=== PATIENT | female | born 1975 | race Caucasian/White ===

== ENCOUNTER → 2016-08-21 | Outpatient (CLI) | payer OTHER, MEDICARE ==
[~2016-08-21] MED LIST: /DULO30CA OR; /DULO30CA PO; /FENT25PA TD; COLA100C2 OR; DICL75TA PO; DOCU10CA PO; DULO30CA PO; EMBEDA; GLYB25TA PO; LINZ145C PO; LYRI200C OR; MAGN400C2 PO; MELO15TA4 PO; MIRALEX OR; NEUR300C PO; NORT25CA2; ORAL CONTRACEPTIVE OR; PERC10TA17 PO; PERC5TAB8; PERC5TAB8 OR; POLYBTL PO; SENN8.6C PO; SENN8.6T14 OR; SKEL-29 PO; SOMA350T; SOMA350T OR; SOMA350T PO; TIZA4CAP3 PO; TOPA25TA PO; TOPI100T; TOPI100T OR; TRAM50TA2 OR; TRAM50TA2 PO; TRAZ100T OR; ULTR50TA PO; VALI5TAB PO; VITA100037 PO; VOLT1GEL2 TOP; VOLT1GEL24 TD; [UNRECOGNIZED DRUG - OTHER] PO; benifiber PO; lodine PO
--- NOTE | 2016-08-25 23:35 | ECWPNPC ---
PATIENT NAME: SOPHIE BRYAN : 1975 GENDER: FEMALE VISIT DATE: 08/21/2016 DISCHARGE DATE: 08/21/16 1611 VISIT LOCKED DATE TIME: PHYSICIAN: MESSI GRANGER RESOURCE: MESSI GRANGER REASON FOR APPOINTMENT 1. W/C BACK HISTORY OF PRESENT ILLNESS HISTORY OF PRESENT ILLNESS: PAIN THE PATIENT DESCRIBES THE PAIN... FALL RISK SCREENING: SCREENING :NO FALLS IN THE PAST YEAR TODAY'S VISIT: NOTES: WC LOW BACK - HAS NOTED INCREASED SORENESS WITH NOT BEING ABLE TO GET MEDS ON SCHEDULE. NOW SIGNIFICANT BACK PAIN AND L>R HIP AND LEG. SLEEP IS SIG DISRUPTED. BOWELS MOVING ONCE A WEEK. HAVING DIFFICULTY GETTING MEDS.RATES PAIN TODAY 7/10. DESCRIBES PAIN CONSTANT, ACHING, BURNING STABBING THROBBING AND SHOOTING. PAIN IS CENTERED ACROSS THE LOW BACK WITH RADIATION TO THE LEGS. . CURRENT MEDICATIONS TAKING COLACE 100 MG CAPSULE 2 CAPSULES NEEDED ORALLY 3X/DAY TAKING MAGNESIUM 400 MG TABLET 1 TABLET WITH A MEAL ORALLY ONCE A DAY TAKING VITAMIN D 46954 MG CAPSULE UNITS ORALLY DAILY TAKING CYMBALTA 60 MG CAPSULE DELAYED RELEASE PARTICLES 1 CAPSULE ORALLY EVERY NIGHT TAKING VOLTAREN 1 % GEL 100 GRAMS EXTERNALLY EVERY 6 HOUR PRN PAIN. APPLY TO LOW ELEANOR TAKING VALIUM 5 MG TABLET 1 TABLET NEEDED ORALLY TWICE A DAY PRN SPASM MDD=2 TAKING ASPIRIN ADULT LOW DOSE 81 MG TABLET DELAYED RELEASE 1 TABLET ORALLY ONCE A DAY TAKING ACCU-CHEK COMPACT PLUS _ STRIP 1 CAP(S) IN VITRO BID TAKING MIRALAX 1 POWDER DIRECTED ORALLY 17 GM IN 8 OZ FLUID 1-2 TIMES PER DAY TAKING ACCU-CHEK SOFT TOUCH LANCETS _ MISCELLANEOUS DIRECTED SUBCUTANEOUSLY DIRECTED TAKING ALCOHOL PADS 70 % PAD DIRECTED TOPICALLY DIRECTED TAKING TIZANIDINE HCL 4 MG TABLET 1 -2 TABS ORALLY THREE TIMES DAILY NEEDED TAKING CYMBALTA 30 MG CAPSULE DELAYED RELEASE PARTICLES 1 CAPSULE ORALLY EVERY AM TAKING MELOXICAM 15 MG TABLET 1 TABLET ORALLY ONCE A DAY TAKING TRAMADOL HCL 50 MG TABLET 1 TABLET NEEDED ORALLY EVERY 4 HRS PRN PAIN MDD=6 TAKING ACCU-CHEK COMPACT PLUS - STRIP USE DIRECTED TWO TIMES A DAY TAKING GABAPENTIN 600 MG CAPSULE 1 CAPSULE ORALLY THREE TIMES DAILY TAKING SIMVASTATIN 40 MG TABLET TAKE ONE TABLET DIRECTED ONCE DAILY TAKING MOVANTIK 25 MG TABLET 1 TABLET IN THE MORNING ORALLY ONCE A DAY TAKING OXYCODONE HCL 10 MG TABLET 1 TABLET ORALLY EVERY 6 HRS PRN PAIN MDD=4 CHRONIC PAIN TAKING METFORMIN HCL 500 MG TABLET DIRECTED ORALLY 2 TABS EVERY MORNING AND EVENING, ONE TAB AT LUNCH NOT-TAKING SKELAXIN 800 MG TABLET 1 TABLET ORALLY TWICE DAILY NOT-TAKING LINZESS 145 MCG CAPSULES 1 CAPSUL P.O. DAILY NOT-TAKING PERCOCET 10-325 MG TABLET 1 TABLET ORALLY EVERY 6 HRS PRN PAIN MDD=4 NOT-TAKING LINZESS 145 MCG CAPSULE 1 CAPSULE ORALLY ONCE A DAY DISCONTINUED POLYETHYLENE GLYCOL 200 255 LIQUID GM P.O. DAILY NEEDED DISCONTINUED METFORMIN 500 TABLET 1 TAB ORAL 1000 IN AM, 500 AT NOON, 1000 IN PM DISCONTINUED SIMVASTATIN 40 40MG TABLET DIRECTED ORAL ONCE DAILY DISCONTINUED CEFDINIR 300 MG CAPSULE 1 CAPSULE ORALLY EVERY 12 HRS MEDICATION LIST REVIEWED AND RECONCILED WITH THE PATIENT PAST MEDICAL HISTORY BORDERLINE DIABETES S/P BACK INJURY WITH NERVE DAMAGE DEPRESSION ALLERGIES PENICILLIN (FOR ALLERGIES USE ONLY): ANAPHYLAXIS: ALLERGY SOCIAL HISTORY GENERAL: TOBACCO USE ARE YOU A:NONSMOKER LEARNING BARRIERS / SPECIAL NEEDS ORIENTED TO PLAN OF CARE: PATIENT, PAIN MANAGEMENT PATIENT, ORIENTED TO PLAN OF CARE: PATIENT, PAIN MANAGEMENT PATIENT. NEW PATIENT PAIN DIARY TODAY'S VISITNOTES FROM 0-10, WHAT LEVEL IS YOUR PAIN TODAY?0 PAIN CLINIC PFS, CLERGY, PUBLIC HEALTH REFERRALS PFS REFERRAL NEEDED?NO CLERGY REFERRAL NEEDED?NO PUBLIC HEALTH REFERRAL NEEDED?NO WAS THE PROVIDER NOTIFIED OF ANY PERTINENT INFO?NO PFS REFERRAL NEEDED?NO CLERGY REFERRAL NEEDED?NO PUBLIC HEALTH REFERRAL NEEDED?NO WAS THE PROVIDER NOTIFIED OF ANY PERTINENT INFO?NO REVIEW OF SYSTEMS CONSTITUTIONAL: ANY CHANGE IN YOUR MEDICAL CONDITION? NO . CHILLS NO . FEVER NO . INFECTION: DO YOU HAVE NEW INFECTIONS? NO . DO YOU HAVE HISTORY OF MRSA? NO . MUSCULOSKELETAL: ANY NEW PATTERNS OF PAIN OR NUMBNESS? NO . GASTROENTEROLOGY: ANY NEW CHANGE IN BOWEL CONTROL? NO . GENITOURINARY: ANY NEW CHANGE IN BLADDER CONTROL? NO . IS THERE A CHANCE YOU COULD BE ? NO . HEMATOLOGY/LYMPH: DO YOU TAKE ANY BLOOD THINNERS? (FOR EXAMPLE- COUMADIN, PLAVIX, AGGRENOX, PLATEL, PRADAXA, OR XARELTO) NO . WHEN WAS YOUR LAST DOSE? DATE: TIME: . NEUROLOGY: HAVE YOU FALLEN IN THE PAST 6 MONTHS? YES. NO ED EVAL. BRUISED-RESOLVED . ANY NEW EXTREMITY NUMBNESS OR WEAKNESS? NO . CARDIOLOGY: DO YOU HAVE A PACEMAKER OR DEFIBRILLATOR? NO . RESPIRATORY: HAVE YOU BEEN SICK IN THE PAST WEEK? NO . FEVER NO . FLU LIKE SYMPTOMS? NO . COUGH NO . INTEGUMENTARY: DO YOU HAVE ANY RASHES OR OPEN SORES? NO . ALLERGIC/IMMUNO: ARE YOU ALLERGIC TO SHELLFISH OR IV DYE? NO . ANY NEW ALLERGIES? NO . PSYCHIATRIC: DO YOU HAVE THOUGHTS OF HURTING YOURSELF OR SOMEONE ELSE? NO . ARE YOU ABUSED, NEGLECTED, OR IN AN UNSAFE ENVIRONMENT? NO . ENDOCRINOLOGY: ARE YOU DIABETIC? YES &QUOT;BORDERLINE&QUOT; . OTHER: DO YOU NEED ANY PRESCRIPTIONS? NO . IF YES, PLEASE LIST: ____ . ANY NEW PROBLEMS WITH YOUR MEDICATIONS? NO . WHEN DID YOU LAST EAT? ____ . WHEN DID YOU LAST DRINK? ____ . WHAT DID YOU LAST DRINK? ____ . NAME OF PERSON DRIVING YOU HOME? ____ . DO YOU HAVE ANY OTHER QUESTIONS OR CONCERNS NO . REVIEWED BY: PROVIDER: MESSI PAULSON . VITAL SIGNS WT 222.4 LBS, HT 65 IN, BMI 37.01 INDEX, BP 139/71 MM HG, HR 107 /MIN, RR 18 /MIN, TEMP 97.4 F, OXYGEN SAT % 94, NA INITIALS HS, REVIEWED BY: MLF. EXAMINATION GENERAL EXAMINATION: PSYCHALERT , ORIENTED X 3 , APPROPRIATE MOOD AND AFFECT . LUNGS:CLEAR TO AUSCULTATION BILATERALLY. HEART:HEART RATE REGULAR. MUSCULOSKELETAL:PALPATION: POSITIVE FOR PAIN OVER L/S SPINE. POINT TENDERNESS OVER BILATERAL SACRAL ILIAC JOINTS. GENERALIZED WEAKNESS WITH QUAD FLEX BILATERALLY.SLOW TO RISE TO STANDING POSITION. GAIT SLOW , WIDEBASED ANDANTALGIC. WALKER USED FOR BALANCE. ASSESSMENTS POSTLAMINECTOMY SYNDROME, NOT ELSEWHERE CLASSIFIED - M96.1 (PRIMARY) SACROILIITIS, NOT ELSEWHERE CLASSIFIED - M46.1 CHRONIC PRESCRIPTION OPIATE USE - Z79.891 TREATMENT POSTLAMINECTOMY SYNDROME, NOT ELSEWHERE CLASSIFIED REFILL GABAPENTIN TABLET, 800 MG, 1 CAPSULE, ORALLY, THREE TIMES DAILY, 30 DAYS, 90 CAPS, REFILLS 5 NOTES: UTOX TODAY UPDATE NARCOTIC AGREEMENT. CNTINUE USUAL MEDS. USE OPIODS INFREQ POSSIBLE. CURRENTLY IS TAKING NO MORE THAN 2 TRAMADOL TABS /DAY AND IS TAKING USUALLY 3 -4 OXY CODONE PER DAY, BUT AT MAX 5-6 PER DAY ON BAD DAYS. CLINICAL NOTES: ISTOP REGISTRY REVIEWED AND DEMNOSTRATES COMPLLIANCE. BRINGS IN MEDICATIONS WHICH IS APPROPRIATE FOR WHAT WAS DISPENSED. RECENT URINE TOXICOLOGY REVIEWED. NO UNAUTHORIZED MEDICATIONS. NO ILLICIT SUBSTANCES AND PRESCRIBED MEDICATIONS WERE PRESENT. PROCEDURES PN WORKMANS' COMP OPINION IN YOUR OPINION, WAS THE INCIDENT THAT THE PATIENT DESCRIBED THE COMPETENT MEDICAL CAUSE OF THIS INJURY/ILLNESS? YES ARE THE PATIENT'S COMPLAINTS CONSISTENT WITH HIS/HER HISTORY OF THE INJURY/ILLNESS? YES IS THE PATIENT'S HISTORY OF THE INJURY/ILLNESS CONSISTENT WITH YOUR OBJECTIVE FINDING? YES WHAT IS THE PERCENTAGE OF TEMPORARY IMPAIRMENT? TOTAL = 100% IS THE PATIENT WORKING? NO DOCTOR ON SITE: MARICRUZ PEREYRA MD PROCEDURE CODES FA211 ESTABILISHED PATIENT [facility] FACILITY CHARGE DISPOSITION & COMMUNICATION FOLLOW UP WC BACK WITH ELOY IN 4-6 WEEKS (REASON: WC BACK LEW FOLLOWUP) ELECTRONICALLY SIGNED BY KAYLYN ANGULO ON 08/25/2016 AT 05:46 PM EDT DISCLAIMER : THIS IS A VISIT SUMMARY EXTRACTED FROM THE [employer] CHART. IT IS NOT A COPY OF THE [employer] PROGRESS NOTE. KAL
== END ==
LOC: M PAIN 14:20
PROVIDERS: ATTEND Nurse Practitioner Family
DX: Z09 Encounter for follow-up examination after completed treatment for conditions other than malignant neoplasm (principal); G89.29 Other chronic pain; M96.1 Postlaminectomy syndrome, not elsewhere classified; M46.1 Sacroiliitis, not elsewhere classified; R73.09 Other abnormal glucose; F32.9 Major depressive disorder, single episode, unspecified; Z88.5 Allergy status to narcotic agent; Z79.82 Long term (current) use of aspirin; Z79.84 Long term (current) use of oral hypoglycemic drugs; Z79.899 Other long term (current) drug therapy

== ENCOUNTER → 2016-10-03 | Outpatient (CLI) | payer OTHER, MEDICARE ==
--- NOTE | 2016-10-16 00:05 | ECWPNPC ---
PATIENT NAME: SOPHIE BRYAN : 1975 GENDER: FEMALE VISIT DATE: 10/03/2016 DISCHARGE DATE: 10/03/16 1608 VISIT LOCKED DATE TIME: PHYSICIAN: MARICRUZ SPENCER RESOURCE: MARICRUZ SPENCER REASON FOR APPOINTMENT 1. W/C BACK HISTORY OF PRESENT ILLNESS HISTORY OF PRESENT ILLNESS: PAIN THE PATIENT DESCRIBES THE PAIN... 41 YEAR OLD FEMALE PATIENT WITH HISTORY OF CHRONIC BACK PAIN. PATIENT DESCRIBES THE PAIN ACHING, BURNING, SHARP, STABBING, THROBBING, SORE, SHOOTING, AND HAVING IT ALL THE TIME WITH A PAIN SCORE OF 7/10 ON TODAY'S VISIT. 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 BRYAN INJURING HER BACK. PATIENT REPORTS OF HAVING ONE BACK SURGERY IN THE PAST. PATIENT STATES THAT SHE HAS TRIED PHYSICAL THERAPY IN THE PAST AND IT ONLY MADE THE PAIN WORST. PATIENT STATES THAT SHE WOULD WALK IN AND LEAVE IN A WHEEL CHAIR. PATIENT REPORTS OF RADIATING PAIN DOWN BOTH LEGS FROM HER BACK. PATIENT REPORTS THAT SHE HAS A TENS UNITS WHICH GREATLY HELPS WITH HER PAIN, BUT THE DEVICE IS BEGINNING TO FAIL. PATIENT REPORTS OF RADIATING PAIN DOWN BOTH LEGS AND HER LOW BACK HURTS THE MOST TODAY. PATIENT DENIES UNEXPLAINABLE WEIGHT LOSS, FEVER, CHILLS, NEW CHANGES ON HER URINARY OR BOWEL CONTROL. FALL RISK SCREENING: SCREENING :NO FALLS IN THE PAST YEAR CURRENT MEDICATIONS TAKING COLACE 100 MG CAPSULE 2 CAPSULES NEEDED ORALLY 3X/DAY TAKING MAGNESIUM 400 MG TABLET 1 TABLET WITH A MEAL ORALLY ONCE A DAY TAKING VITAMIN D 98636 MG CAPSULE UNITS ORALLY DAILY TAKING CYMBALTA 60 MG CAPSULE DELAYED RELEASE PARTICLES 1 CAPSULE ORALLY EVERY NIGHT TAKING VOLTAREN 1 % GEL 100 GRAMS EXTERNALLY EVERY 6 HOUR PRN PAIN. APPLY TO LOW ELEANOR TAKING VALIUM 5 MG TABLET 1 TABLET NEEDED ORALLY TWICE A DAY PRN SPASM MDD=2 TAKING ASPIRIN ADULT LOW DOSE 81 MG TABLET DELAYED RELEASE 1 TABLET ORALLY ONCE A DAY TAKING ACCU-CHEK COMPACT PLUS _ STRIP 1 CAP(S) IN VITRO BID TAKING MIRALAX 1 POWDER DIRECTED ORALLY 17 GM IN 8 OZ FLUID 1-2 TIMES PER DAY TAKING ACCU-CHEK SOFT TOUCH LANCETS _ MISCELLANEOUS DIRECTED SUBCUTANEOUSLY DIRECTED TAKING ALCOHOL PADS 70 % PAD DIRECTED TOPICALLY DIRECTED TAKING TIZANIDINE HCL 4 MG TABLET 1 -2 TABS ORALLY THREE TIMES DAILY NEEDED TAKING CYMBALTA 30 MG CAPSULE DELAYED RELEASE PARTICLES 1 CAPSULE ORALLY EVERY AM TAKING MELOXICAM 15 MG TABLET 1 TABLET ORALLY ONCE A DAY TAKING TRAMADOL HCL 50 MG TABLET 1 TABLET NEEDED ORALLY EVERY 4 HRS PRN PAIN MDD=6 TAKING ACCU-CHEK COMPACT PLUS - STRIP USE DIRECTED TWO TIMES A DAY TAKING SIMVASTATIN 40 MG TABLET TAKE ONE TABLET DIRECTED ONCE DAILY TAKING MOVANTIK 25 MG TABLET 1 TABLET IN THE MORNING ORALLY ONCE A DAY TAKING OXYCODONE HCL 10 MG TABLET 1 TABLET ORALLY EVERY 6 HRS PRN PAIN MDD=4 CHRONIC PAIN TAKING METFORMIN HCL 500 MG TABLET DIRECTED ORALLY 2 TABS EVERY MORNING AND EVENING, ONE TAB AT LUNCH TAKING GABAPENTIN 800 MG TABLET 1 CAPSULE ORALLY THREE TIMES DAILY NOT-TAKING SKELAXIN 800 MG TABLET 1 TABLET ORALLY TWICE DAILY NOT-TAKING LINZESS 145 MCG CAPSULES 1 CAPSUL P.O. DAILY NOT-TAKING PERCOCET 10-325 MG TABLET 1 TABLET ORALLY EVERY 6 HRS PRN PAIN MDD=4 NOT-TAKING LINZESS 145 MCG CAPSULE 1 CAPSULE ORALLY ONCE A DAY MEDICATION LIST REVIEWED AND RECONCILED WITH THE PATIENT PAST MEDICAL HISTORY BORDERLINE DIABETES S/P BACK INJURY WITH NERVE DAMAGE DEPRESSION ALLERGIES PENICILLIN (FOR ALLERGIES USE ONLY): ANAPHYLAXIS: ALLERGY SURGICAL HISTORY 2 C-SECTIONS GALL BLADDER REMOVED BUNION SURGERY LUMBAR BACK SURGERY FAMILY HISTORY NO FAMILY HISTORY DOCUMENTED. SOCIAL HISTORY GENERAL: TOBACCO USE ARE YOU A:NONSMOKER LEARNING BARRIERS / SPECIAL NEEDS ORIENTED TO PLAN OF CARE: PATIENT, PAIN MANAGEMENT PATIENT, ORIENTED TO PLAN OF CARE: PATIENT, PAIN MANAGEMENT PATIENT. NEW PATIENT PAIN DIARY TODAY'S VISITNOTES FROM 0-10, WHAT LEVEL IS YOUR PAIN TODAY?0 PAIN CLINIC PFS, CLERGY, PUBLIC HEALTH REFERRALS PFS REFERRAL NEEDED?NO CLERGY REFERRAL NEEDED?NO PUBLIC HEALTH REFERRAL NEEDED?NO WAS THE PROVIDER NOTIFIED OF ANY PERTINENT INFO?NO PFS REFERRAL NEEDED?NO CLERGY REFERRAL NEEDED?NO PUBLIC HEALTH REFERRAL NEEDED?NO WAS THE PROVIDER NOTIFIED OF ANY PERTINENT INFO?NO HOSPITALIZATION/MAJOR DIAGNOSTIC PROCEDURE ONLY RELATED TO SURGERIES REVIEW OF SYSTEMS CONSTITUTIONAL: ANY CHANGE IN YOUR MEDICAL CONDITION? NO . CHILLS NO . FEVER NO . INFECTION: DO YOU HAVE NEW INFECTIONS? NO . DO YOU HAVE HISTORY OF MRSA? NO . MUSCULOSKELETAL: ANY NEW PATTERNS OF PAIN OR NUMBNESS? NO . GASTROENTEROLOGY: ANY NEW CHANGE IN BOWEL CONTROL? NO . GENITOURINARY: ANY NEW CHANGE IN BLADDER CONTROL? NO . IS THERE A CHANCE YOU COULD BE ? NO . HEMATOLOGY/LYMPH: DO YOU TAKE ANY BLOOD THINNERS? (FOR EXAMPLE- COUMADIN, PLAVIX, AGGRENOX, PLATEL, PRADAXA, OR XARELTO) NO . WHEN WAS YOUR LAST DOSE? DATE: TIME: . NEUROLOGY: HAVE YOU FALLEN IN THE PAST 6 MONTHS? YES, 4 MONTHS AGO, SLIPPED ON ICE--NO INJURY . ANY NEW EXTREMITY NUMBNESS OR WEAKNESS? NO . CARDIOLOGY: DO YOU HAVE A PACEMAKER OR DEFIBRILLATOR? NO . RESPIRATORY: HAVE YOU BEEN SICK IN THE PAST WEEK? NO . FEVER NO . FLU LIKE SYMPTOMS? NO . COUGH NO . INTEGUMENTARY: DO YOU HAVE ANY RASHES OR OPEN SORES? NO . ALLERGIC/IMMUNO: ARE YOU ALLERGIC TO SHELLFISH OR IV DYE? NO . ANY NEW ALLERGIES? NO . PSYCHIATRIC: DO YOU HAVE THOUGHTS OF HURTING YOURSELF OR SOMEONE ELSE? NO . ARE YOU ABUSED, NEGLECTED, OR IN AN UNSAFE ENVIRONMENT? NO . ENDOCRINOLOGY: ARE YOU DIABETIC? YES . OTHER: DO YOU NEED ANY PRESCRIPTIONS? YES . IF YES, PLEASE LIST: OXYCODONE,GABAPENTIN 800MGS,VALIUM, MALOXICAM, MIRALAX . ANY NEW PROBLEMS WITH YOUR MEDICATIONS? NO . WHEN DID YOU LAST EAT? ____ . WHEN DID YOU LAST DRINK? ____ . WHAT DID YOU LAST DRINK? ____ . NAME OF PERSON DRIVING YOU HOME? ____ . DO YOU HAVE ANY OTHER QUESTIONS OR CONCERNS YES, SCRIPT FOR GABAPENTING 800MGS NEVER WENT THROUGH TO HER PHARMACY . REVIEWED BY: PROVIDER: MARICRUZ SPENCER MD . VITAL SIGNS WT 222.4 LBS, HT 65 IN, BMI 37.01 INDEX, BP 128/69 MM HG, HR 106 /MIN, RR 18 /MIN, TEMP 98.3 F, OXYGEN SAT % 97%, NA INITIALS TL 1427, REVIEWED BY: AD. EXAMINATION : PATIENT IS ALERT O X 3 AND COOPERATIVE. PATIENT AMBULATES WITH AN ANTALGIC GAIT AND AN UNSTEADY GAIT. PATIENT IS ABLE TO BENT HER BACK TO 50 DEGREES AND EXTEND TO 5 DEGREES. THERE IS HYPERPATHIA IN THE LOW BACK ON THE SCAR. SEVERE TENDERNESS IN THE SACROILIAC AREA TOWARDS THE RIGHT SIDE. BOTH LEGS ARE WEAK, ESPECIALLY THE LEFT LEG. FABERE TEST POSITIVE FOR PAIN BILATERALLY ON BOTH LEGS, THE RIGHT LEG BEING VERY SENSITIVE. MRI OF THE LUMBAR SPINE DONE ON 04/07/2015 SHOWS A DEGENERATIVE DISC CHANGE AT L4-L5 WITH PRIOR LEFT LAMINECTOMY AND A BULGING DISC WITH A CENTRAL DISC PROTRUSION AT L5-S1. 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 BRYAN'S PAIN MANAGEMENT CASE. I WAS WITH THE PATIENT MORE THAN 30 MINUTES IN THE ENCOUNTER TODAY, MORE THAN HALF THE TIME WAS DEDICATED TO ALTERNATIVES, COUNSELING, AND DISCUSSING HER CASE. PATIENT DID NOT BRING HER MEDICATION IN THE ORIGINAL BOTTLES TODAY, AND WAS ADVISED TO BRING THEM FOR EVERY VISIT. PATIENT WILL RECEIVE A REFILL OF GABAPENTIN, VOLTAREN GEL, TIZANIDINE, MOVANTIK, OXYCODONE, COLACE, AND MIRALAX POWDER TODAY. PATIENT IS TAKING GABAPENTIN FOR THE NEUROPATHIC AND RADIATING PAIN. TIZANIDINE FOR MUSCLE SPASTICITY, PATIENT REPORTS THAT NOT TAKING THIS MEDICATION CAUSES SEVERE SPASTICITY. I WILL HAVE THE PATIENT STOP MELOXICAM TO DETERMINE IF THIS MEDICATION IS HELPING HER. I WILL HAVE THE PATIENT BEGIN TO WEAN OFF TRAMADOL TO DETERMINE IF THIS MEDICATION IS HELPING HER. OXYCODONE, THE PATIENT IS TAKING FOR SOMATIC PAIN. I WILL WRITE A NEW TENS UNITS SCRIPT FOR THE PATIENT TODAY. AFTER EXAMINING THE PATIENT SHE IS A GOOD CANDIDATE FOR A BILATERAL SACROILIAC JOINT INJECTION. WE DISCUSSED THE RISK, BENEFITS, AND ALTERNATIVES AND THE PATIENT WOULD LIKE TO PROCEED. PATIENT WILL BE BOOKED PENDING APPROVAL. UTOX DONE ON AUGUST 2015 SHOWS CONSISTENT RESULTS. INSTRUCTIONS WERE GIVEN, QUESTIONS WERE ANSWERED, PATIENT REPORTS UNDERSTANDING AND AGREES WITH THE PLAN. I, SHERYL HUNT, DOCUMENTED THE ABOVE INFORMATION ACTING A SCRIBE FOR DR. SPENCER. I HAVE REVIEWED THE ABOVE DOCUMENT, WRITTEN BY SHERYL HUNT SCRIBLillian AND I VERIFY THAT IT IS ACCURATE. POSTLAMINECTOMY SYNDROME, NOT ELSEWHERE CLASSIFIED REFILL GABAPENTIN TABLET, 800 MG, 1 CAPSULE, ORALLY, THREE TIMES DAILY, 30 DAYS, 90 CAPS, REFILLS 2 OTHERS REFILL VOLTAREN GEL, 1 %, 100 GRAMS, EXTERNALLY NEEDED, EVERY 6 HOUR PRN PAIN. APPLY TO LOW ELEANOR, 30 DAY(S), 1, REFILLS 2 REFILL TIZANIDINE HCL TABLET, 4 MG, 1 TABS, ORALLY NEEDED, QID FOR SPASMS AND PAIN MDD4, 30 DAYS, 120, REFILLS 2 REFILL MELOXICAM TABLET, 15 MG, 1 TABLET, ORALLY, ONCE A DAY, 30 DAY(S), 30, REFILLS 5 REFILL TRAMADOL HCL TABLET, 50 MG, 1 TABLET NEEDED, ORALLY, EVERY 4 HRS PRN PAIN MDD=6, 30 DAY(S), 180, REFILLS 0 REFILL MOVANTIK TABLET, 25 MG, 1 TABLET IN THE MORNING, ORALLY FOR CONSTIPATION, ONCE A DAY, 30 DAY(S), 30, REFILLS 2 REFILL OXYCODONE HCL TABLET, 10 MG, 1 TABLET, ORALLY, EVERY 6 HRS PRN PAIN MDD=6 CHRONIC PAIN, 30 DAY(S), 140, REFILLS 0 REFILL COLACE CAPSULE, 100 MG, 2 CAPSULES NEEDED, ORALLY, 3X/DAY, 30 DAY(S), 90, REFILLS 2 REFILL MIRALAX POWDER, 1, DIRECTED, ORALLY, 17 GM IN 8 OZ FLUID 1-2 TIMES PER DAY, 30 DAY(S), 1 BOTTLE, REFILLS 2 PROCEDURES PN WORKMANS' COMP OPINION IN YOUR OPINION, WAS THE INCIDENT THAT THE PATIENT DESCRIBED THE COMPETENT MEDICAL CAUSE OF THIS INJURY/ILLNESS? YES ARE THE PATIENT'S COMPLAINTS CONSISTENT WITH HIS/HER HISTORY OF THE INJURY/ILLNESS? YES IS THE PATIENT'S HISTORY OF THE INJURY/ILLNESS CONSISTENT WITH YOUR OBJECTIVE FINDING? YES WHAT IS THE PERCENTAGE OF TEMPORARY IMPAIRMENT? TOTAL = 100% IS THE PATIENT WORKING? NO DOCTOR ON SITE: MARICRUZ PEREYRA MD PROCEDURE CODES FA211 ESTABILISHED PATIENT [facility] FACILITY CHARGE G8730 PAIN ASSESS POS TOOL F/U PLAN DOC G8427 DOC MEDS VERIFIED W/PT OR RE DISPOSITION & COMMUNICATION FOLLOW UP [facility] PENDING APPROVAL ELECTRONICALLY SIGNED BY MARICRUZ SPENCER MD ON 10/15/2016 AT 12:41 PM EDT DISCLAIMER : THIS IS A VISIT SUMMARY EXTRACTED FROM THE [employer] CHART. IT IS NOT A COPY OF THE [employer] PROGRESS NOTE. MTDD
== END ==
LOC: M PAIN 14:20
PROVIDERS: ATTEND Anesthesiology
DX: G89.29 Other chronic pain (principal); M46.1 Sacroiliitis, not elsewhere classified; M96.1 Postlaminectomy syndrome, not elsewhere classified; M51.16 Intervertebral disc disorders with radiculopathy, lumbar region; M51.17 Intervertebral disc disorders with radiculopathy, lumbosacral region; E11.9 Type 2 diabetes mellitus without complications; F32.9 Major depressive disorder, single episode, unspecified; Z88.0 Allergy status to penicillin; Z79.82 Long term (current) use of aspirin; Z79.84 Long term (current) use of oral hypoglycemic drugs; Z79.891 Long term (current) use of opiate analgesic; Z79.899 Other long term (current) drug therapy

== ENCOUNTER → 2017-02-01 | Outpatient (REF) | payer MEDICARE, OTHER ==
[~2017-02-01] MED LIST changes: -PERC10TA17 PO; +PERC10TA26 PO; -SKEL-29 PO; +SKEL800T97 PO; +ULTR50TA8 PO; -VITA100037 PO; +VITA100067 PO; +VOLT1GEL15 TD; -VOLT1GEL24 TD
[2017-02-01 13:27] LABS: ALBUMIN 3.5 GM/DL (3.2-5.2); ALBUMIN/GLOBULIN RATIO 1.17 (1.00-1.93); ALKALINE PHOSPHATASE 90 U/L (45-117); ALT/SGPT 26 U/L (12-78); ANION GAP 9 MEQ/L (8-16); AST/SGOT 17 U/L (15-37); BILIRUBIN,TOTAL 0.3 MG/DL (0.2-1.0); BLOOD UREA NITROGEN 8 MG/DL (7-18); CALCIUM LEVEL 8.4 MG/DL (8.5-10.1); CARBON DIOXIDE LEVEL 26 MEQ/L (21-32); CHLORIDE LEVEL 104 MEQ/L (98-107); CHOLESTEROL LEVEL 133 MG/DL (<200); CREATININE FOR GFR 0.64 MG/DL (0.55-1.02); GLOMERULAR FILTRATION RATE > 60.0 (>58); GLUCOSE, FASTING 151 MG/DL (70-105); POTASSIUM SERUM 4.2 MEQ/L (3.5-5.1); SODIUM LEVEL 139 MEQ/L (136-145); TOTAL PROTEIN 6.5 GM/DL (6.4-8.2); TRIGLYCERIDES LEVEL 142 MG/DL (<150)
== END ==
LOC: M SFHCLERA 09:19
PROVIDERS: ATTEND Physician Assistant
DX: E78.2 Mixed hyperlipidemia (principal); E11.9 Type 2 diabetes mellitus without complications
CPT/HCPCS: 80053; 80061; 82043; 83036; G0463